=== PATIENT | female | born 1945 | race African-American/Black ===

== ENCOUNTER 2025-03-01 13:15 | Emergency (ER) | payer BC, OTHER ==
[~2025-03-01] VITALS: Ht 165.1 cm; Wt 70.0 kg
[~2025-03-01 13:15] MED LIST: AMLO5TAB6 PO; LOSA100T33 PO
[2025-03-01 13:21] VITALS: O2SAT 95
[2025-03-01 13:26] VITALS: BP 151/85; PULSE 85; RESP 17; TEMP 36.9; O2SAT 100
[2025-03-01 15:49] LABS: BASOPHILS % 0.9 % (0.0-2.0); EOSINOPHILS % 0.6 % (0.0-5.0); HEMATOCRIT. 34.0 % (36.0-48.0); HEMOGLOBIN. 11.5 g/dL (12.0-16.0); LYMPHOCYTES % 25.9 % (20.0-50.0); MEAN PLATELET VOLUME 9.8 fl (7.4-10.4); MONOCYTES % 7.3 % (2.0-8.0); NEUTROPHILS % 65.3 % (40.0-76.0); PLATELET 191 x1000/uL (130-400); RED BLOOD CELL COUNT 3.58 mill/uL (4.2-5.4); RED CELL DISTRIBUTION WIDTH 14.0 % (11.6-14.6)
[2025-03-01 16:02] LABS: INR 1.0
[2025-03-01 16:03] LABS: CREATININE 1.0 mg/dL (0.6-1.0)
[2025-03-01 16:04] LABS: UREA NITROGEN BLOOD 18 mg/dL (9-23)
[2025-03-01 16:05] LABS: ASPARTATE AMINOTRANSFERASE 19 IU/L (<34)
[2025-03-01 16:06] LABS: BILIRUBIN DIRECT 0.2 mg/dL (<=3.0); BILIRUBIN TOTAL 0.8 mg/dL (0.1-1.0); PROTEIN TOTAL 7.9 g/dL (6.0-8.3)
[2025-03-01] MEDS: POTASSIUM CHLORIDE 20MEQ/PACKET PO ONE (18:46)
[2025-03-01] MEDS: ONDANSETRON 4MG ODT PO ONE (18:46)
[2025-03-01] MEDS ORDERED: AMOX1TAB16 MT (19:33)
[2025-03-01] MEDS ORDERED: ONDA-239 PO (19:35)
== END 2025-03-01 20:42 | disposition home or self-care (01) ==
LOC: ER 13:15
DX: A05.9 Bacterial foodborne intoxication, unspecified (principal); Z79.899 Other long term (current) drug therapy; Z88.5 Allergy status to narcotic agent
CPT/HCPCS: 99284; 74176; 80076; 80048; 83690; 85025; 85610; 36415; 93005; Q0162